=== PATIENT | female | born 1995 | race Two or more races ===

== ENCOUNTER → 2022-12-19 | Outpatient (CLI) | payer OTHER ==
[2022-12-19 17:36] LABS: HEMATOCRIT 37.1 % (36.0-47.0); MEAN CORPUSCULAR HEMOGLOBIN 27.8 pg (27.0-33.0); MEAN CORPUSCULAR HGB CONC 32.3 g/dl (32.0-36.5); MEAN CORPUSCULAR VOLUME 86.1 fl (80.0-96.0); PLATELET COUNT, AUTOMATED 362 10^3/uL (150-450); RED BLOOD COUNT 4.31 10^6/uL (4.00-5.40); WHITE BLOOD COUNT 11.5 10^3/uL (4.0-10.0)
[2022-12-19 18:23] LABS: HIV 1&2 SCREEN NEGATIVE (NEGATIVE)
[2022-12-19 18:31] LABS: HEPATITIS C VIRUS ABY INDEX 0.14 INDEX (<0.8)
[2022-12-19 19:52] LABS: GC DNA AMPLIFICATION NEGATIVE (NEGATIVE)
== END ==
LOC: M PLALAB 15:43
PROVIDERS: ATTEND Advanced Practice Midwife
DX: Z34.01 Encounter for supervision of normal first pregnancy, first trimester (principal)

== ENCOUNTER → 2022-12-19 | Outpatient (REF) | payer OTHER | LOC: M PLALAB 15:09 | PROVIDERS: ATTEND Advanced Practice Midwife | DX: Z53.9 Procedure and treatment not carried out, unspecified reason (principal) ==

== ENCOUNTER → 2023-04-09 | Outpatient (CLI) | payer OTHER ==
[2023-04-09 10:15] LABS: HEMATOCRIT 30.4 % (36.0-47.0); MEAN CORPUSCULAR HEMOGLOBIN 28.6 pg (27.0-33.0); MEAN CORPUSCULAR HGB CONC 32.9 g/dl (32.0-36.5); MEAN CORPUSCULAR VOLUME 86.9 fl (80.0-96.0); PLATELET COUNT, AUTOMATED 336 10^3/uL (150-450); WHITE BLOOD COUNT 12.3 10^3/uL (4.0-10.0)
== END ==
LOC: M PLALAB 07:48
PROVIDERS: ATTEND Advanced Practice Midwife
DX: O44.20 Partial placenta previa NOS or without hemorrhage, unspecified trimester (principal); Z3A.00 Weeks of gestation of pregnancy not specified
CPT/HCPCS: 36415; 82950; 85027; 86850; 86900; 86901; 90471; 90715; G0463

== ENCOUNTER → 2023-04-14 | Outpatient (CLI) | payer OTHER | LOC: M WHC 07:46 | PROVIDERS: ATTEND Advanced Practice Midwife | DX: O44.20 Partial placenta previa NOS or without hemorrhage, unspecified trimester (principal); Z3A.28 28 weeks gestation of pregnancy ==

== ENCOUNTER → 2023-05-28 | Outpatient (CLI) | payer OTHER | LOC: M RAD 14:12 | PROVIDERS: ATTEND Obstetrics & Gynecology | DX: O26.843 Uterine size-date discrepancy, third trimester (principal) ==

== ENCOUNTER → 2023-06-10 | Outpatient (REF) | payer OTHER | LOC: M PLALAB 11:18 | PROVIDERS: ATTEND Obstetrics & Gynecology | DX: Z3A.36 36 weeks gestation of pregnancy (principal) | CPT/HCPCS: 87081; G0463 ==

== ENCOUNTER 2023-06-28 12:14 | Inpatient (IN) | payer OTHER ==
[~2023-06-28] VITALS: Ht 165.1 cm; Wt 98.1 kg
[2023-06-28] VITALS (38 sets, daily range): BP systolic 116–154; BP diastolic 55–85
[2023-06-28] MEDS ORDERED: PRENTAB9 PO (12:42)
[2023-06-28] MEDS ORDERED: OXYTOCIN DRIP 30 UNITS in IV 1 EA IV PRN (13:00)
[2023-06-28] MEDS ORDERED: LIDOCAINE 1% MDV 20ML VIAL INFIL PRN (13:00)
[2023-06-28] MEDS ORDERED: HOME MED LIST COMPLETE! XX SCH (13:10)
[2023-06-28 13:42] LABS: HEMATOCRIT 32.3 % (36.0-47.0); HEMOGLOBIN 10.8 g/dl (12.0-15.5); MEAN CORPUSCULAR HEMOGLOBIN 28.2 pg (27.0-33.0); MEAN CORPUSCULAR HGB CONC 33.4 g/dl (32.0-36.5); MEAN CORPUSCULAR VOLUME 84.3 fl (80.0-96.0); PLATELET COUNT, AUTOMATED 337 10^3/uL (150-450); RED BLOOD COUNT 3.83 10^6/uL (4.00-5.40); WHITE BLOOD COUNT 13.2 10^3/uL (4.0-10.0)
[2023-06-28] MEDS ORDERED: ePHEDrine SULFATE 25 MG/5 ML(5MG/ML) SYRINGE IVP PRN (14:30)
[2023-06-28] MEDS ORDERED: diphenhydrAMINE 50MG/ML VIAL IV PRN (14:30)
[2023-06-28] MEDS ORDERED: NALOXONE INJ 0.4MG/1ML VIAL IV PRN (14:30)
[2023-06-28] MEDS ORDERED: EPIDURAL/PCA KEYS XX PRN (14:30)
[2023-06-28] MEDS ORDERED: LR 500 ML IV PRN (14:30)
[2023-06-28] MEDS: LR 1,000 ML IV SCH (14:34)
[2023-06-28] MEDS: FENTANYL/ROPIVACAINE/NACL BAG 100 ML EPIDURAL SCH (14:34)
[2023-06-28] MEDS: LR 1,000 ML IV ONE (14:37)
[2023-06-28] MEDS: OXYTOCIN DRIP 30 UNITS in IV 1 EA IV SCH (16:02)
[2023-06-28] MEDS: ACETAMINOPHEN 500 MG TAB PO PRN (19:19)
[2023-06-28] MEDS: ONDANSETRON 4MG 2ML VIAL IV PRN (22:50)
[2023-06-29] VITALS (15 sets, daily range): BP systolic 120–165; BP diastolic 58–81; O2SAT 96–97
[2023-06-29] MEDS ORDERED: RHOGAM 300MCG (1500IU) INJ IM SCH (04:25)
[2023-06-29] MEDS ORDERED: METHYLERGONOVINE MALEATE 0.2 MG TAB PO PRN (04:25)
[2023-06-29] MEDS: IBUPROFEN 800 MG TAB PO PRN (05:40)
[2023-06-29] MEDS: PRENATAL VITAMINS CHEWABLE TABLET PO SCH (08:27)
[2023-06-29] MEDS: ACETAMINOPHEN 500 MG TAB PO PRN (08:28)
[2023-06-29 15:00] LABS: HEMATOCRIT 26.5 % (36.0-47.0); MEAN CORPUSCULAR HGB CONC 33.2 g/dl (32.0-36.5); MEAN CORPUSCULAR VOLUME 87.5 fl (80.0-96.0); PLATELET COUNT, AUTOMATED 347 10^3/uL (150-450); RED BLOOD COUNT 3.03 10^6/uL (4.00-5.40); WHITE BLOOD COUNT 20.4 10^3/uL (4.0-10.0)
[2023-06-29 15:01] LABS: HEMOGLOBIN 8.8 g/dl (12.0-15.5)
[2023-06-30] MEDS: IBUPROFEN 600MG TAB PO PRN (05:19)
[2023-06-30 05:41] VITALS: BP 122/67; O2SAT 98
[2023-06-30] MEDS: DIBUCAINE 1% OINTMENT 30GM TOP PRN (07:41)
[2023-06-30] MEDS: DOCUSATE SODIUM 100MG CAPSULE PO PRN (07:41)
[2023-06-30 07:51] LABS: HEMATOCRIT 23.3 % (36.0-47.0); HEMOGLOBIN 7.5 g/dl (12.0-15.5); MEAN CORPUSCULAR HGB CONC 32.2 g/dl (32.0-36.5); MEAN CORPUSCULAR VOLUME 86.9 fl (80.0-96.0); PLATELET COUNT, AUTOMATED 267 10^3/uL (150-450); RED BLOOD COUNT 2.68 10^6/uL (4.00-5.40); WHITE BLOOD COUNT 16.9 10^3/uL (4.0-10.0)
[2023-06-30 08:12] VITALS: O2SAT 16
[2023-06-30] MEDS: FERROUS GLUCONATE 324 MG TAB PO SCH (10:01)
[2023-06-30 18:00] VITALS: BP 133/75; O2SAT 98
[2023-07-01] MEDS: ACETAMINOPHEN TAB 650MG DOSE (2X325MG) PO PRN (05:24)
[2023-07-01 06:00] VITALS: BP 135/77; O2SAT 98
[2023-07-01 08:25] LABS: HEMATOCRIT 24.6 % (36.0-47.0); HEMOGLOBIN 7.8 g/dl (12.0-15.5); MEAN CORPUSCULAR HEMOGLOBIN 28.3 pg (27.0-33.0); MEAN CORPUSCULAR HGB CONC 31.7 g/dl (32.0-36.5); MEAN CORPUSCULAR VOLUME 89.1 fl (80.0-96.0); PLATELET COUNT, AUTOMATED 274 10^3/uL (150-450); RED BLOOD COUNT 2.76 10^6/uL (4.00-5.40); WHITE BLOOD COUNT 13.2 10^3/uL (4.0-10.0)
[2023-07-01] MEDS: MEASLES,MUMPS,RUBELLA VACCINE INJ (MMR-II) SC.IMMUN ONE (09:17)
[2023-07-01] MEDS ORDERED: COLA100C5 PO (12:26)
[2023-07-01] MEDS ORDERED: IBUP80TA PO (12:26)
== END 2023-07-01 13:20 | disposition home or self-care (01) | DRG 806 ==
LOC: M LDO 12:14 → M LDI 12:55 → M OBS 06-29 08:48
PROVIDERS: ADMIT Specialist; ATTEND Specialist
PROC: 10E0XZZ Delivery of Products of Conception, External Approach (ICD-10-PCS; principal; 2023-06-29)
PROC: 0UQGXZZ Repair Vagina, External Approach (ICD-10-PCS; 2023-06-29)
DX: O71.4 Obstetric high vaginal laceration alone (principal); Z37.0 Single live birth; O72.1 Other immediate postpartum hemorrhage; Z3A.39 39 weeks gestation of pregnancy

== ENCOUNTER → 2024-12-15 | Outpatient (REF) | payer OTHER ==
[~2024-12-15] MED LIST: COLA100C5 PO; IBUP80TA PO; PRENTAB9 PO
[2024-12-17 15:17] LABS: HPV APTIMA Not Detected (Not Detected)
== END ==
LOC: M SFHCWAGY 13:06
PROVIDERS: ATTEND Specialist
DX: Z01.419 Encounter for gynecological examination (general) (routine) without abnormal findings (principal)
CPT/HCPCS: 87624; G0123